=== PATIENT | female | born 1970 | race Caucasian/White ===

== ENCOUNTER 2022-01-05 16:54 | Outpatient (CLI) | payer OTHER, SELFPAY ==
[2022-01-05 14:28] LABS: Chloride* 105 mmol/L (96-114)
[2022-01-05 14:29] LABS: Albumin* 4.5 g/dL (3.3-5.0); Sodium* 144 mmol/L (135-149)
[2022-01-05 14:30] LABS: Potassium* 4.6 mmol/L (3.6-5.1)
[2022-01-05 14:32] LABS: Alanine Aminotransferase* 28 U/L (4-35); Alkaline Phosphatase* 89 U/L (40-150); Aspartate Amino Transferase* 26 U/L (12-35); Bilirubin Total* 0.8 mg/dL (0.1-1.5); Blood Urea Nitrogen* 18 mg/dL (7-30); Calcium* 9.3 mg/dL (8.4-10.6); Carbon Dioxide* 29 mmol/L (20-32); Cholesterol* 176 mg/dL (90-199); Creatinine* 0.9 mg/dL (0.5-1.5); Estimated Glomerular Filt Rate 76 ml/min; Glucose* 103 mg/dL (60-115); Total Protein* 7.7 g/dL (6.0-8.3); Triglycerides* 229 mg/dL (40-149)
[2022-01-05 14:33] LABS: HDL Cholesterol* 46 mg/dL (>=50); LDL Cholesterol Calculated 84 mg/dL (<100)
== END 2022-01-05 16:55 | disposition home or self-care (01) ==
PROVIDERS: PCP Physician Assistant Medical; Visit Provider Physician Assistant Medical
DX: Z00.00 Encounter for general adult medical examination without abnormal findings (principal); E78.5 Hyperlipidemia, unspecified; I10 Essential (primary) hypertension
CPT/HCPCS: 80053; 80061

== ENCOUNTER 2022-01-13 14:39 | Outpatient (CLI) | payer OTHER, SELFPAY ==
--- NOTE | 2022-01-13 15:00 | CRLHL7_ITS ---
For Patients: As a result of the Century Cures Act, medical imaging exams and procedure reports are released immediately into your electronic medical record. You may view this report before your referring provider. If you have questions, please contact your health care provider. INDICATION: Liver lesion seen on CT scan 07/01/2019 TECHNIQUE: Ultrasound abdomen limited. Sonographic images of the right upper quadrant were obtained using burnham-scale and color Doppler images. COMPARISON: CT scan of pelvis 07/01/2019 FINDINGS: Liver: Normal in size diffuse fatty infiltration. No masses. No intrahepatic biliary dilatation. Gallbladder: No stones or sludge. Normal wall thickness. No pericholecystic fluid. Common bile duct: 5 mm. Pancreas: Normal. Right kidney: 9.9 cm. Normal echotexture and cortex. No masses, stones, or hydronephrosis. Vasculature: Proximal abdominal aorta and IVC are normal. IMPRESSION: He is fatty infiltration of the liver. No focal or diffuse hepatic lesions as demonstrated on CT scan. Dictated by French Garcia MD @ 01/13/2022 3:33:35 PM (Electronically Signed)
== END 2022-01-13 14:40 | disposition home or self-care (01) ==
LOC: US 14:39
PROVIDERS: PCP Physician Assistant Medical; Visit Provider Physician Assistant Medical
DX: K76.9 Liver disease, unspecified (principal); K76.0 Fatty (change of) liver, not elsewhere classified
CPT/HCPCS: 76705

== ENCOUNTER 2022-02-15 10:06 | Outpatient (CLI) | payer OTHER, SELFPAY ==
--- NOTE | 2022-02-15 11:25 | W.ANESCHARGE ---
Anesthesia Charges Start Date/Time Anesthesia Start Date: 02/15/22 Anesthesia Start Time: 11:00 Stop Date/Time Anesthesia Stop Date: 02/15/22 Anesthesia Stop Time: 11:17 Summary Emergency: No
== END 2022-02-15 10:07 | disposition home or self-care (01) ==
LOC: OP CLINIC 10:07
PROVIDERS: PCP Physician Assistant Medical; Visit Provider Surgery
DX: K20.0 Eosinophilic esophagitis (principal); K31.7 Polyp of stomach and duodenum; K22.89 Other specified disease of esophagus
CPT/HCPCS: 00731; 43239; 88305; J2704

== ENCOUNTER 2022-12-28 08:20 | Outpatient (CLI) | payer OTHER, SELFPAY | END 2022-12-28 08:21 | disposition home or self-care (01) | LOC: NFLDREF 12-30 10:33 | PROVIDERS: PCP Physician Assistant Medical; Referring Provider Physician Assistant Medical; Visit Provider Physician Assistant Medical | DX: E78.5 Hyperlipidemia, unspecified (principal); Z13.1 Encounter for screening for diabetes mellitus | CPT/HCPCS: 80053; 80061 ==

== ENCOUNTER 2023-06-21 08:17 | Outpatient (CLI) | payer OTHER, SELFPAY | END 2023-06-21 08:18 | disposition home or self-care (01) | PROVIDERS: PCP Physician Assistant Medical; Visit Provider Physician Assistant Medical | DX: E78.5 Hyperlipidemia, unspecified (principal); I10 Essential (primary) hypertension | CPT/HCPCS: 80053; 80061 ==

== ENCOUNTER 2023-07-19 07:00 | Outpatient (CLI) | payer OTHER, SELFPAY ==
--- NOTE | 2023-07-19 07:15 | CRLHL7_ITS ---
For Patients: As a result of the Century Cures Act, medical imaging exams and procedure reports are released immediately into your electronic medical record. You may view this report before your referring provider. If you have questions, please contact your health care provider. INDICATION: Personal history of malignant neoplasm breast. Prior hysterectomy right oophorectomy. TECHNIQUE: Transabdominal and transvaginal pelvic ultrasound. COMPARISON: No prior. FINDINGS: Uterus and right ovary are absent. Left ovary measures 2.6 x 1.3 x 1.4 centimeters in size. Small left ovarian calcifications. No left ovarian lesion suspicious for a ovarian malignancy. There is no pelvic mass or ascites. IMPRESSION: 1. No left ovarian lesion suspicious for an ovarian malignancy. 2. No pelvic mass or ascites. 3. Prior hysterectomy and right oophorectomy. Dictated by Delgado Lainez MD @ 07/20/2023 7:57:16 AM (Electronically Signed)
== END 2023-07-19 07:01 | disposition home or self-care (01) ==
LOC: US 07:01
PROVIDERS: PCP Physician Assistant Medical; Visit Provider Physician Assistant Medical
DX: Z85.3 Personal history of malignant neoplasm of breast (principal)
CPT/HCPCS: 76830; 76856

== ENCOUNTER 2023-08-09 08:12 | Outpatient (CLI) | payer OTHER, SELFPAY ==
--- NOTE | 2023-08-09 08:15 | CRLHL7_ITS ---
For Patients: As a result of the Century Cures Act, medical imaging exams and procedure reports are released immediately into your electronic medical record. You may view this report before your referring provider. If you have questions, please contact your health care provider. BILATERAL BREAST MRI WITHOUT GADOLINIUM CLINICAL HISTORY: Evaluate for breast silicone implant rupture. 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 She is status post bilateral mastectomy with implant reconstruction performed in June 2011. COMPARISON: Breast MRI dated 06/06/2011, prior to implant placement. CONTRAST: None. TECHNIQUE: The patient was positioned prone and scanned using a breast coil. Several imaging sequences of both breasts were obtained using 1-1.5 mm thick slices with no gap including T2-weighted and silicone selective sequences in axial and sagittal planes. BILATERAL BREAST MRI FINDINGS: No evidence of intracapsular or extracapsular rupture of silicone implants in either breast. Both implant contours demonstrate a fair amount of folds bilaterally. IMPRESSIONS AND RECOMMENDATIONS: No evidence of silicone implant intracapsular rupture or extracapsular extravasation. Note: This study is designed to evaluate for implant rupture and is not a breast cancer screening study. Dictated by Stacey Salazar MD @ 08/10/2023 3:49:52 PM (Electronically Signed)
== END 2023-08-09 08:13 | disposition home or self-care (01) ==
LOC: MRI 08:12
PROVIDERS: PCP Physician Assistant Medical; Visit Provider Plastic Surgery
DX: Z85.3 Personal history of malignant neoplasm of breast (principal)
CPT/HCPCS: 77047

== ENCOUNTER 2024-01-25 07:34 | Outpatient (CLI) | payer OTHER, SELFPAY | END 2024-01-25 07:35 | disposition home or self-care (01) | LOC: NFLDREF 01-26 08:44 | PROVIDERS: PCP Physician Assistant Medical; Referring Provider Physician Assistant Medical; Visit Provider Physician Assistant Medical | DX: E78.5 Hyperlipidemia, unspecified (principal); I10 Essential (primary) hypertension; Z13.29 Encounter for screening for other suspected endocrine disorder | CPT/HCPCS: 80053; 80061; 84443 ==

== ENCOUNTER 2025-02-03 08:14 | Outpatient (CLI) | payer OTHER, SELFPAY | END 2025-02-03 08:15 | disposition home or self-care (01) | LOC: NFLDREF 02-08 17:01 | PROVIDERS: PCP Physician Assistant Medical; Referring Provider Physician Assistant Medical; Visit Provider Physician Assistant Medical | DX: Z00.00 Encounter for general adult medical examination without abnormal findings (principal); Z78.0 Asymptomatic menopausal state | CPT/HCPCS: 80053; 80061; 82306; 84443 ==